=== PATIENT | male | born 1960 | race Asian ===

== ENCOUNTER 2018-03-29 12:11 | Emergency (ER) | payer MEDICARE, BC ==
[~2018-03-29] VITALS: Ht 170.2 cm; Wt 79.1 kg
[~2018-03-29 12:11] MED LIST: ALLO100T PO; ASPI-1265 PO; ATOR40TA PO; FLUO20CA39 PO; HYDR-3972 PO; METO25TA6 PO; MULT1TAB74 PO
[2018-03-29 12:44] LABS: BASOPHILS % (AUTO) 0.4 % (0-1); EOSINOPHILS # (AUTO) 0.3 X10'3 (0-0.9); EOSINOPHILS % (AUTO) 5.6 % (0-6); HEMATOCRIT 43.1 % (42.0-52.0); HEMOGLOBIN 14.9 g/dl (14.0-17.9); LYMPHOCYTES # (AUTO) 2.2 X10'3 (1.1-4.8); LYMPHOCYTES % (AUTO) 39.7 % (21-51); MEAN CORPUSCULAR HEMOGLOBIN 31.7 PG (27.0-31.0); MEAN CORPUSCULAR HGB CONC 34.7 % (33.0-36.5); MEAN CORPUSCULAR VOLUME 91.5 FL (78-98); MONOCYTES # (AUTO) 0.5 X10'3 (0-0.9); MONOCYTES % (AUTO) 8.6 % (2-12); NEUTROPHILS # (AUTO) 2.5 X10'3 (1.8-7.7); NEUTROPHILS % (AUTO) 45.7 % (42-75); PLATELET COUNT 265 X10'3 (140-440); RED BLOOD COUNT 4.71 X10'6 (4.70-6.10); RED CELL DISTRIBUTION WIDTH 14.8 % (11.5-14.5); WHITE BLOOD COUNT 5.5 X10'3 (4.5-11.0)
[2018-03-29 12:59] LABS: ALANINE AMINOTRANSFERASE 47 U/L (12-78); ALBUMIN 3.8 G/DL (3.4-5.0); ALKALINE PHOSPHATASE 63 IU/L (46-116); ANION GAP 11 (8-16); ASPARTATE AMINO TRANSFERASE 21 U/L (10-37); BILIRUBIN,TOTAL 0.5 MG/DL (0.1-1.0); BLOOD UREA NITROGEN 14 MG/DL (7-18); BUN/CREATININE RATIO 13.7 (5.4-32.0); CALCIUM 8.7 MG/DL (8.5-10.1); CHLORIDE 107 MMOL/L (99-107); CREATININE 1.02 MG/DL (0.60-1.10); GLUCOSE 111 MG/DL (70-104); SODIUM 143 MMOL/L (135-145); TOTAL CARBON DIOXIDE 24.9 MMOL/L (24-32); TOTAL PROTEIN 7.6 G/DL (6.4-8.2); eGFR 75 ML/MIN
[2018-03-29 13:13] LABS: INR 0.9 INR; PARTIAL THROMBOPLASTIN TIME 26 SECONDS (22-32); PROTHROMBIN TIME 9.8 SECONDS (9.0-12.0)
[2018-03-29] MEDS ORDERED: ketorolac trometh inj. 60 MG/2 ML VIAL IM ONE ×2 (13:45→13:54)
[2018-03-29] MEDS ORDERED: ketorolac trometh. 30mg/ml inj. ONE (13:52)
[2018-03-29 14:15] VITALS: BP 113/77
== END 2018-03-29 14:14 | disposition home or self-care (01) ==
LOC: ER 12:11
DX: R07.89 Other chest pain (principal); I25.10 Atherosclerotic heart disease of native coronary artery without angina pectoris; E78.00 Pure hypercholesterolemia, unspecified; Z95.1 Presence of aortocoronary bypass graft; Z98.890 Other specified postprocedural states; Z79.82 Long term (current) use of aspirin; Z79.899 Other long term (current) drug therapy
CPT/HCPCS: 36415; 71045; 80053; 83880; 84484; 85025; 85610; 85730; 93005; 96372; 99285; J1885

== ENCOUNTER 2019-03-04 11:18 | Emergency (ER) | payer MEDICARE, BC ==
[~2019-03-04] VITALS: Ht 172.7 cm; Wt 86.0 kg
--- NOTE | 2019-03-04 11:57 | NUR ---
pt feels he could be having a reaction from his medication, guaiatussin syrup or amoxicillin.
[2019-03-04 12:04] LABS: BASOPHILS % (AUTO) 0.8 % (0-1); EOSINOPHILS # (AUTO) 0.4 X10'3 (0-0.9); EOSINOPHILS % (AUTO) 8.9 % (0-6); HEMATOCRIT 42.2 % (42.0-52.0); HEMOGLOBIN 14.3 g/dl (14.0-17.9); LYMPHOCYTES # (AUTO) 1.7 X10'3 (1.1-4.8); LYMPHOCYTES % (AUTO) 36.3 % (21-51); MEAN CORPUSCULAR HGB CONC 33.9 g/dL (33.0-36.5); MEAN CORPUSCULAR VOLUME 94.5 FL (78-98); MEAN PLATELET VOLUME 6.7 FL (7.4-10.4); MONOCYTES # (AUTO) 0.6 X10'3 (0-0.9); MONOCYTES % (AUTO) 13.2 % (2-12); NEUTROPHILS % (AUTO) 40.8 % (42-75); PLATELET COUNT 282 X10'3 (140-440); RED BLOOD COUNT 4.46 X10'6 (4.70-6.10); RED CELL DISTRIBUTION WIDTH 14.2 % (11.5-14.5); WHITE BLOOD COUNT 4.8 X10'3 (4.5-11.0)
[2019-03-04 12:24] LABS: PARTIAL THROMBOPLASTIN TIME 27 SECONDS (22-32)
[2019-03-04 12:25] LABS: ALANINE AMINOTRANSFERASE 51 U/L (12-78); ALBUMIN 3.8 G/DL (3.4-5.0); ALKALINE PHOSPHATASE 79 IU/L (46-116); ANION GAP 6 (8-16); ASPARTATE AMINO TRANSFERASE 26 U/L (10-37); BILIRUBIN,TOTAL 0.5 MG/DL (0.1-1.0); BLOOD UREA NITROGEN 17 MG/DL (7-18); BUN/CREATININE RATIO 16.5 (5.4-32.0); CALCIUM 9.1 MG/DL (8.5-10.1); CHLORIDE 107 MMOL/L (99-107); CREATININE 1.03 MG/DL (0.60-1.10); GLUCOSE 101 MG/DL (70-104); POTASSIUM 3.5 MMOL/L (3.5-5.1); SODIUM 141 MMOL/L (135-145); TOTAL CARBON DIOXIDE 27.8 MMOL/L (24-32); TOTAL PROTEIN 7.6 G/DL (6.4-8.2); eGFR 74 ML/MIN
--- NOTE | 2019-03-04 15:21 | NUR ---
ate 100% of lunch. pt sleeping quietly at this time. no acute distress nted. vss
[2019-03-04 15:35] VITALS: BP 119/79
== END 2019-03-04 15:36 | disposition home or self-care (01) ==
LOC: ER 11:19
DX: R07.9 Chest pain, unspecified (principal); I25.119 Atherosclerotic heart disease of native coronary artery with unspecified angina pectoris; E78.00 Pure hypercholesterolemia, unspecified; Z98.890 Other specified postprocedural states; Z79.82 Long term (current) use of aspirin; Z79.899 Other long term (current) drug therapy
CPT/HCPCS: 36415; 71045; 80053; 84484; 85025; 85610; 85730; 93005; 99284

== ENCOUNTER 2019-07-17 12:09 | Emergency (ER) | payer MEDICARE, BC ==
[~2019-07-17] VITALS: Ht 167.6 cm; Wt 75.0 kg
[2019-07-17 12:19] VITALS: BP 127/82
[2019-07-17] MEDS ORDERED: ACET-3067 PO (13:22)
== END 2019-07-17 13:36 | disposition home or self-care (01) ==
LOC: ER 12:10
DX: M25.561 Pain in right knee (principal); I25.10 Atherosclerotic heart disease of native coronary artery without angina pectoris; E78.00 Pure hypercholesterolemia, unspecified; F41.9 Anxiety disorder, unspecified; Z95.1 Presence of aortocoronary bypass graft; Z98.890 Other specified postprocedural states; Z79.82 Long term (current) use of aspirin; Z79.899 Other long term (current) drug therapy
CPT/HCPCS: 73564; 99283

== ENCOUNTER 2019-07-19 14:18 | Emergency (ER) | payer MEDICARE, BC ==
[~2019-07-19] VITALS: Ht 170.2 cm; Wt 75.0 kg
[~2019-07-19 14:18] MED LIST changes: +ACET-3067 PO
[2019-07-19 15:07] VITALS: BP 111/83
[2019-07-19] MEDS ORDERED: dexamethasone 4mg tablet PO ONE (15:45)
[2019-07-19] MEDS ORDERED: ALLO300T2 PO (15:46)
== END 2019-07-19 16:10 | disposition home or self-care (01) ==
LOC: ER 14:19
DX: M10.9 Gout, unspecified (principal); I25.10 Atherosclerotic heart disease of native coronary artery without angina pectoris; E78.00 Pure hypercholesterolemia, unspecified; F41.9 Anxiety disorder, unspecified; Z95.1 Presence of aortocoronary bypass graft; Z98.890 Other specified postprocedural states; Z79.82 Long term (current) use of aspirin; Z79.899 Other long term (current) drug therapy
CPT/HCPCS: 99283; J8540

== ENCOUNTER 2019-08-01 14:57 | Outpatient (CLI) | payer MEDICARE, BC ==
[~2019-08-01 14:57] MED LIST changes: -ACET-3067 PO; +ALLO300T2 PO
== END 2019-08-01 15:36 | disposition home or self-care (01) ==
LOC: ORTHO 14:57
PROVIDERS: ATTEND Orthopaedic Surgery
DX: M23.91 Unspecified internal derangement of right knee (principal); M25.461 Effusion, right knee; I10 Essential (primary) hypertension
CPT/HCPCS: G0463

== ENCOUNTER 2020-03-29 09:36 | Day surgery (SDC) | payer MEDICARE, BC ==
[2020-03-29] VITALS (10 sets, daily range): BP systolic 113–132; BP diastolic 72–86
[~2020-03-29] VITALS: Ht 170.2 cm; Wt 87.9 kg
[2020-03-29] MEDS ORDERED: diphenhydrAMINE 25mg capsule PO PRN (09:55)
[2020-03-29] MEDS ORDERED: normal saline 1,000 ML IV SCH (09:55)
[2020-03-29] MEDS ORDERED: EZET10TA6 PO (11:07)
[2020-03-29] MEDS ORDERED: midazolam 2 mg/2 ml injection ONE ×2 (11:35→12:16)
[2020-03-29] MEDS ORDERED: fentaNYL/PF 50MCG/1 ML 2ML syringe ONE (11:35)
[2020-03-29] MEDS ORDERED: iohexol 350 MG/ML 50ML vial IV ONE ×2 (11:36→12:28)
[2020-03-29] MEDS ORDERED: iohexol 350MG/ML 100ml bottle IV ONE (11:36)
[2020-03-29] MEDS ORDERED: LIDOcaine 1% (10mg/ml)w/preservative injection 20ml MDV ONE (11:36)
[2020-03-29 11:41] LABS: BASOPHILS % (AUTO) 0.6 % (0-1); EOSINOPHILS # (AUTO) 0.2 X10'3 (0-0.9); EOSINOPHILS % (AUTO) 2.8 % (0-6); HEMATOCRIT 41.9 % (42.0-52.0); HEMOGLOBIN 14.1 g/dl (14.0-17.9); LYMPHOCYTES # (AUTO) 1.9 X10'3 (1.1-4.8); LYMPHOCYTES % (AUTO) 31.8 % (21-51); MEAN CORPUSCULAR HEMOGLOBIN 32.1 PG (27.0-31.0); MEAN CORPUSCULAR HGB CONC 33.6 g/dL (33.0-36.5); MEAN CORPUSCULAR VOLUME 95.5 FL (78-98); MEAN PLATELET VOLUME 6.5 FL (7.4-10.4); MONOCYTES # (AUTO) 0.5 X10'3 (0-0.9); MONOCYTES % (AUTO) 8.5 % (2-12); NEUTROPHILS # (AUTO) 3.3 X10'3 (1.8-7.7); NEUTROPHILS % (AUTO) 56.3 % (42-75); PLATELET COUNT 292 X10'3 (140-440); RED BLOOD COUNT 4.39 X10'6 (4.70-6.10); RED CELL DISTRIBUTION WIDTH 13.9 % (11.5-14.5); WHITE BLOOD COUNT 5.8 X10'3 (4.5-11.0)
[2020-03-29 11:51] LABS: ALBUMIN 3.8 G/DL (3.4-5.0); ANION GAP 6 (8-16); BLOOD UREA NITROGEN 18 MG/DL (7-18); BUN/CREATININE RATIO 18.8 (5.4-32.0); CALCIUM 8.7 MG/DL (8.5-10.1); CHLORIDE 107 MMOL/L (99-107); CREATININE 0.96 MG/DL (0.60-1.10); GLUCOSE 92 MG/DL (70-104); POTASSIUM 4.1 MMOL/L (3.5-5.1); SODIUM 142 MMOL/L (135-145); TOTAL CARBON DIOXIDE 28.7 MMOL/L (24-32); eGFR 80 ML/MIN
[2020-03-29] MEDS ORDERED: HYDROcodone/acetaminophen 5mg/325mg tablet PO PRN (13:10)
[2020-03-29] MEDS ORDERED: proCHLORperazine 10 MG/2 ml inj IV PRN (13:10)
[2020-03-29] MEDS ORDERED: HYDROcodone/acetaminophen 10/325mg tab PO PRN (13:10)
[2020-03-29] MEDS ORDERED: ondansetron/PF 4mg/2ml inj IV PRN (13:10)
[2020-03-29] MEDS ORDERED: acetaminophen 325mg tablet PO PRN (13:10)
== END 2020-03-29 16:30 | disposition home or self-care (01) ==
LOC: SSTAY O 09:36
PROVIDERS: ATTEND Internal Medicine Cardiovascular Disease
DX: R07.89 Other chest pain (principal); I25.10 Atherosclerotic heart disease of native coronary artery without angina pectoris; I25.82 Chronic total occlusion of coronary artery; Z95.1 Presence of aortocoronary bypass graft; Z79.899 Other long term (current) drug therapy
CPT/HCPCS: 36415; 80048; 83735; 85025; 85610; 93005; 93459; 99152; 99153; C1769; C1894; J1644; J2001; J2250; J3010; Q9967; A4620; C1760

== ENCOUNTER 2022-06-22 13:49 | Emergency (ER) | payer MEDICARE, BC ==
[~2022-06-22] VITALS: Ht 170.2 cm; Wt 86.4 kg
[~2022-06-22 13:49] MED LIST changes: -ALLO300T2 PO; +EZET10TA6 PO; -FLUO20CA39 PO; +LOP25T PO; -METO25TA6 PO; -MULT1TAB74 PO
[2022-06-22 14:01] VITALS: BP 146/91
== END 2022-06-22 17:11 | disposition home or self-care (01) ==
LOC: ER 13:50
DX: G58.8 Other specified mononeuropathies (principal); I25.10 Atherosclerotic heart disease of native coronary artery without angina pectoris; E78.00 Pure hypercholesterolemia, unspecified; G89.29 Other chronic pain; M10.9 Gout, unspecified; Z86.73 Personal history of transient ischemic attack (TIA), and cerebral infarction without residual deficits; Z95.5 Presence of coronary angioplasty implant and graft; Z88.8 Allergy status to other drugs, medicaments and biological substances; Z79.82 Long term (current) use of aspirin; Z79.899 Other long term (current) drug therapy
CPT/HCPCS: 99282

== ENCOUNTER 2024-07-14 12:30 | Emergency (ER) | payer MEDICARE, MEDICAID ==
[~2024-07-14] VITALS: Ht 167.6 cm; Wt 85.0 kg
[2024-07-14] MEDS: ketorolac trometh 30MG/ML vial 30 MG/ML VIAL IM ONE (12:51)
[2024-07-14] MEDS: cyclobenzaprine 10mg tablet PO ONE (12:51)
[2024-07-14] MEDS: dexamethasone sod phosphate 10mg/ml inj IM STA (12:51)
[2024-07-14] MEDS: ondansetron 4mg rapidly disintigrating tab PO ONE (12:52)
[2024-07-14] MEDS: HYDROcodone/acetaminophen 5mg/325mg tablet PO ONE (12:52)
[2024-07-14] MEDS ORDERED: MELO-100 PO (14:19)
[2024-07-14 14:37] VITALS: BP 139/74; PULSE 74; RESP 18; TEMP 97.9; O2SAT 98
== END 2024-07-14 14:39 | disposition home or self-care (01) ==
LOC: ER 12:31
DX: G89.29 Other chronic pain (principal); M54.9 Dorsalgia, unspecified; I25.10 Atherosclerotic heart disease of native coronary artery without angina pectoris; E78.00 Pure hypercholesterolemia, unspecified; F41.9 Anxiety disorder, unspecified; Z79.82 Long term (current) use of aspirin; Z79.899 Other long term (current) drug therapy; Z98.890 Other specified postprocedural states; Z86.73 Personal history of transient ischemic attack (TIA), and cerebral infarction without residual deficits; Z95.1 Presence of aortocoronary bypass graft
CPT/HCPCS: 72100; 96372; 99284; J1100; J1885

== ENCOUNTER 2025-02-20 16:24 | Emergency (ER) | payer MEDICARE, MEDICAID ==
[~2025-02-20] VITALS: Ht 170.2 cm; Wt 90.5 kg
[~2025-02-20 16:24] MED LIST changes: +MELO-100 PO; +TRAM50TA2 PO
[2025-02-20 16:45] VITALS: BP 125/61; PULSE 89; RESP 18; TEMP 98.4; O2SAT 96
[2025-02-20] MEDS ORDERED: PRED20TA PO (17:54)
[2025-02-20] MEDS ORDERED: HYDR-3973 PO (17:54)
[2025-02-20] MEDS: HYDROcodone/acetaminophen 5mg/325mg tablet PO ONE (18:38)
[2025-02-20] MEDS: dexamethasone sod phosphate 10mg/ml inj IM STA (18:38)
[2025-02-20] MEDS: ketorolac trometh 30MG/ML vial 30 MG/ML VIAL IM ONE (18:38)
== END 2025-02-20 18:56 | disposition home or self-care (01) ==
LOC: ER 16:25
DX: M79.672 Pain in left foot (principal); M1A.9XX0 Chronic gout, unspecified, without tophus (tophi); F41.9 Anxiety disorder, unspecified; E78.00 Pure hypercholesterolemia, unspecified; I25.10 Atherosclerotic heart disease of native coronary artery without angina pectoris; Z86.73 Personal history of transient ischemic attack (TIA), and cerebral infarction without residual deficits; Z95.1 Presence of aortocoronary bypass graft
CPT/HCPCS: 96372; 99284; J1100; J1885

== ENCOUNTER 2025-04-15 17:28 | Emergency (ER) | payer MEDICARE, MEDICAID ==
[~2025-04-15] VITALS: Ht 170.2 cm; Wt 89.8 kg
[2025-04-15 17:31] VITALS: BP 144/83; PULSE 87; RESP 16; O2SAT 97
[2025-04-15] MEDS: TETanus/Pertussis (Acell)/Diphther VAC/PF (Tdap-Adult) 0.5ml syringe IMVAC ONE (18:36)
--- NOTE | 2025-04-15 18:56 | Physician Documentation ---
History of Present Illness General Chief Complaint: Laceration Stated Complaint: FINGER LAC Time Seen by MD: 17:49 Primary Medical Doctor: Rian Giraldo/ [facility] - cardio History of Present Illness Initial Comments Thumb superficial laceration over the dorsal surface distal the joint while cutting fish. Medication Reconciliation Allergies: Coded Allergies: No Known Drug Allergies (Verified Allergy, Unknown, 04/15/25) Uncoded Allergies: RAW CARROTS (Allergy, Unknown, SNEEZING, 09/21/17) RAW POTATOES (Allergy, Unknown, SNEEZINGI, 09/21/17) Scheduled Allopurinol* (Allopurinol*), 3 TAB PO HS, (Reported) Aspirin (Aspirin), 1 TAB.CHEW PO DAILY, (Reported) Atorvastatin Calcium* (Lipitor*), 1 TABLET PO HS, (Reported) Ibuprofen* (Motrin*), 400 MG PO Q6H Meloxicam* (Meloxicam*), 1 TAB PO DAILY Metoprolol Tartrate* (Lopressor tablet*), 12.5 MG PO Q12H Scheduled PRN Hydrocodone Bit/Acetaminophen (Hydrocodon-Acetaminophn 10-325 tablet), 1 TAB PO Q4H PRN for moderate pain 4-6 Tramadol HCl (Tramadol HCl), 1 TAB PO BID PRN for pain Miscellaneous Medications Ezetimibe (Zetia), 10 MG PO, (Reported) Past Medical History Past Medical History: CVA/TIA/Stroke, Angina, Coronary Artery Disease, High Cholesterol, Chronic Back Pain, Gout, Anxiety Past Surgical History: coronary bypass surgery, orthopedic surgeries Alcohol Use: None Drug Use: none Lives In: Home Review of Systems All Other Systems at this time: Reviewed and Negative Integumentary laceration Physical Exam Physical Exam Vital Signs: RN Vital Signs have been reviewed: Yes, Temperature: 98.1, Source: Temporal, Heart Rate: 87, Respiratory Rate: 16, BP: 144/83, Pulse Oximetry: 97, Weight: 89.750 Oxygen Flow Rate: 0 General Appearance: alert, mild distress Head: normal inspection Face: normal inspection Cardiovascular: normal peripheral pulses Extremities: normal range of motion Neurologic: oriented x4, 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 Motor / Sensory: no motor deficit, no sensory deficit Psychiatric: normal mood/affect Skin: other (0.25 superficial a crescent type laceration over the proximal dorsum of the thumb without nail involvement no bleeding) Procedures Laceration/Wound Repair Laceration/Wound Repair : Length (cm): 0.25 Prep: irrigated by nurse Foreign Body: not identified Repaired: skin Wound Repaired With: Dermabond Dressing Applied: simple Sling Applied?: No Tolerated Procedure Well?: yes, no complications Progress Results/Orders Results/Orders Completed Orders - LEAH BILLINGS Tetanus/Pertuss/Diph Acell/Pf (Boostrix (04/15/25 18:20) Medications Received in ER Medications (Trade) Dose Ordered Sig/Ramesh Route PRN Reason Start Time Stop Time Status Last Admin Dose Admin (Boostrix vaccine syringe) 0.5 ml ONCE ONCE IMVAC 04/15/25 18:20 04/15/25 18:21 DC 04/15/25 18:36 0.5 ML Vital Signs 04/15/25 04/15/25 17:31 19:06 Temp 98.1 98.1 Pulse 87 Resp 16 B/P (MAP) 144/83 Pulse Ox 97 O2 Flow Rate 0 Medical Decision Making Differential Diagnosis Examination history requires cleansing of the wound. With the wound edges were then secured with Dermabond. Received updated tetanus immunization while in the emergency department. Safe for discharge with the understanding for 70 her a wound check. Remains logically intact before range of motion. Departure Disposition: 01 HOME / SELF CARE / HOMELESS Impression: Primary Impression: Thumb laceration Qualified Codes: S61.012A - Laceration without foreign body of left thumb without damage to nail, initial encounter Condition: Improved Discharge Instructions: Laceration Care, Adult, [id number] Additional Instructions: In the emergency department you had your tetanus immunization updated and the skin flap on your the thumb repaired with skin adhesive. Please allow skin glue to dissolve on own. Watch for signs of infection and follow up with the primary care physician. For your left foot please take ibuprofen and make appointment with the bat lathe operator for suspected plantar fasciitis. Referrals: NO PRIMARY CARE PROVIDER (PCP) Prescriptions Ibuprofen* (Motrin*) 400 Mg Tablet 400 MG PO Q6H for 10 Days, #30 TAB Prov: LEAH BILLINGS 04/15/25 Education Educated: Patient, Family Educated regarding: diagnosis, treatment Signature Scribe Signature: . Attestation: . LEAH BILLINGS Apr 15, 2025 18:56
[2025-04-15] MEDS ORDERED: IBUP-1984 PO (18:57)
[2025-04-15 19:06] VITALS: TEMP 98.1
== END 2025-04-15 19:07 | disposition home or self-care (01) ==
LOC: ER 17:28
DX: S61.012A Laceration without foreign body of left thumb without damage to nail, initial encounter (principal); E78.00 Pure hypercholesterolemia, unspecified; F41.9 Anxiety disorder, unspecified; I25.10 Atherosclerotic heart disease of native coronary artery without angina pectoris; Z86.73 Personal history of transient ischemic attack (TIA), and cerebral infarction without residual deficits; Z95.1 Presence of aortocoronary bypass graft; W45.8XXA Other foreign body or object entering through skin, initial encounter; Y93.89 Activity, other specified; Y92.89 Other specified places as the place of occurrence of the external cause; Y99.8 Other external cause status
CPT/HCPCS: 12001; 90715; 99283; G0008; Z7610; 90471